=== PATIENT | female | born 1995 | race Hispanic/Latino ===

== ENCOUNTER 2018-12-10 18:07 | Emergency (ER) | payer BC, OTHER ==
[~2018-12-10] VITALS: Ht 154.9 cm; Wt 68.0 kg
[2018-12-10] MEDS ORDERED: SODIUM CHLORIDE 0.9% 1000ML 1,000 ML IV STA (18:16)
[2018-12-10 18:36] LABS: BILIRUBIN,URINE NEGATIVE (NEGATIVE); CLARITY,URINE SL CLOUDY (CLEAR); COLOR,URINE YELLOW (YELLOW); KETONES,URINE 2+ (NEGATIVE); LEUKOCYTE ESTERASE ,URINE NEGATIVE (NEGATIVE); NITRITE,URINE POSITIVE (NEGATIVE); PROTEIN,URINE DIPSTICK TRACE (NEGATIVE); URINE UROBILINOGEN 0.2 mg/dL (0.2 - 1)
[2018-12-10 18:39] LABS: PREGNANCY TEST, URINE NEGATIVE (NEGATIVE)
[2018-12-10 18:40] LABS: BASOPHILS % 0.1 % (0.0-1.0); EOSINOPHILS # (AUTO) 0.1 (0.0-0.4); EOSINOPHILS % 1.6 % (0.0-6.0); HEMATOCRIT 40.2 % (34.2-44.1); HEMOGLOBIN 13.9 g/dL (12.0-16.0); LYMPHOCYTES # (AUTO) 0.5 (1.0-3.2); LYMPHOCYTES % 7.9 % (18.0-39.1); MEAN CORPUSCULAR HEMOGLOBIN 28.7 pg (28-32); MEAN CORPUSCULAR HGB CONC 34.6 g/dL (31-35); MEAN CORPUSCULAR VOLUME 83.1 fL (81-99); MONOCYTES # (AUTO) 0.3 (0.2-0.8); MONOCYTES % 4.6 % (4.4-11.3); NEUTROPHILS # (AUTO) 5.7 (2.1-6.9); NEUTROPHILS % 85.4 % (38.7-80.0); PLATELET COUNT 286 x10e3/uL (140-360); RED BLOOD COUNT 4.84 x10e6/uL (3.6-5.1); RED CELL DISTRIBUTION WIDTH 12.4 % (11.7-14.4)
[2018-12-10] MEDS ORDERED: ONDANSETRON HCL INJ 2MG/ML 2ML 2 MG/ML VIAL IV ONE (18:45)
[2018-12-10 18:48] LABS: BACTERIA,URINE MANY /HPF; EPITHELIAL CELLS,URINE MANY /LPF; TRANSITIONAL EPI CELLS,URINE MODERATE
[2018-12-10 18:49] LABS: ANION GAP 15.6 mmol/L (8-16); BLOOD UREA NITROGEN 8 mg/dL (7-26); BUN/CREATININE RATIO 13 (6-25); CALCIUM 9.3 mg/dL (8.4-10.2); CARBON DIOXIDE 20 mmol/L (22-29); CHLORIDE 101 mmol/L (98-107); EST GLOMERULAR FILTRATION RATE > 60 ML/MIN (60-); GLUCOSE 103 mg/dL (74-118); POTASSIUM 3.6 mmol/L (3.5-5.1); SODIUM 133 mmol/L (136-145)
--- NOTE | 2018-12-10 19:07 | Diagnostic Imaging Report ---
RADIOGRAPH(S) OF THE ABDOMEN AND PELVIS, 2 view(s) HISTORY: Pain, vomiting x1 day COMPARISON: None available. FINDINGS: No specific evidence of obstruction or ileus. No definite urinary tract calcification. Metallic clips in the right upper quadrant of the abdomen are compatible with prior cholecystectomy. A nonspecific 5 mm linear calcification within the right hemipelvis, which may be vascular calcification. The bones are partially obscured by stool and overlying bowel gas. IMPRESSION: 1. Nonobstructive bowel gas pattern. 2. Status post cholecystectomy. Signed by: Dr. Damian Donaldson D.O., M.M.M. on 12/10/2018 7:03 PM
--- NOTE | 2018-12-10 19:10 | NUR ---
WHILE PT WAS IN X-RAY IVF NS BAG WAS THROWN AWAY IN ROOM, NS BAG HAD APPROX 500 CC REMAINING. PT STARTED ON NEW NS 500 CC BAG BOLUS.
[2018-12-10] MEDS ORDERED: SODIUM CHLORIDE 0.9% 500ML 500 ML ONE (19:11)
[2018-12-10 19:55] VITALS: BP 112/76
== END 2018-12-10 19:55 | disposition home or self-care (01) ==
LOC: ER 18:07
DX: R10.33 Periumbilical pain (principal); R11.0 Nausea; N30.90 Cystitis, unspecified without hematuria
CPT/HCPCS: 36415; 74018; 80048; 81001; 81025; 85025; 99284; J2405; J7030; J7040

== ENCOUNTER 2022-10-12 19:53 | Emergency (ER) | payer BC, OTHER ==
[~2022-10-12] VITALS: Ht 154.9 cm; Wt 68.0 kg
[2022-10-12] MEDS ORDERED: ONDANSETRON HCL INJ 2MG/ML 2ML 2 MG/ML VIAL IV STA (20:23)
[2022-10-12] MEDS ORDERED: FAMOTIDINE 20 MG/2 ML VIAL IV STA (20:23)
[2022-10-12] MEDS ORDERED: SODIUM CHLORIDE 0.9% 1000ML 1,000 ML IV ONE (20:30)
[2022-10-12] MEDS ORDERED: ONDANSETRON HCL INJ 2MG/ML 2ML 2 MG/ML VIAL ONE (20:50)
[2022-10-12] MEDS ORDERED: FAMOTIDINE 20 MG/2 ML VIAL IV ONE (20:50)
[2022-10-12] MEDS ORDERED: SODIUM CHLORIDE 0.9% 1000ML 1,000 ML ONE (20:50)
[2022-10-12] MEDS ORDERED: MAGNESIUM/ALUMINUM/SIMETHICONE 30 ML UDC PO ONE (21:15)
[2022-10-12] MEDS ORDERED: MAGNESIUM/ALUMINUM/SIMETHICONE 30 ML UDC ONE (21:25)
[2022-10-12 23:00] VITALS: O2SAT 97
[2022-10-13] MEDS ORDERED: PEPCID20 MG PO (00:03)
== END 2022-10-13 00:20 | disposition home or self-care (01) ==
LOC: FSED 19:56
DX: O21.0 Mild hyperemesis gravidarum (principal); K29.70 Gastritis, unspecified, without bleeding; K21.9 Gastro-esophageal reflux disease without esophagitis
CPT/HCPCS: 76705; 76801; 80053; 85025; 99284; J2405; J7030